=== PATIENT | female | born 1975 | race Caucasian/White ===

== ENCOUNTER 2024-12-16 09:01 | Outpatient (AMB) | payer OTHER, SELFPAY ==
--- NOTE | 2024-12-16 09:19 | MHC.OFFWIV ---
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 Patient Tobacco Use Status: Current everyday Tobacco user Allergies No Known Allergies Allergy (Verified 12/16/24 09:23) Do you need a note to return to daycare/school/sports/work: Yes HPI HPI Comments History of Present Illness Details 49 y/o Female patient who presents to the walk in clinic with c/o Cough chest congestion and headaches that has been present for about 2 weeks. Pt is a chronic cigarette smoker. Patient c/o Left ear blockage from cerumen. [facility], [facility] Medical History (Updated 12/16/24 @ 10:16 by Kelley Mcdonald NP) Cerumen impaction Cough Social History Patient Tobacco Use Status: Current everyday Tobacco user Review of Systems Const All systems reviewed & are unremarkable except as noted in HPI and below Physical Exam Vital Signs: Last Vital Signs Temp 98.1 F 12/16/24 09:24 Pulse 64 12/16/24 09:24 BP 114/70 12/16/24 09:24 Pulse Ox 96 12/16/24 09:24 Oxygen Delivery Method Room Air 12/16/24 09:24 Const General: no acute distress Nutritional Appearance: obese Orientation/consciousness: patient oriented x3 HEENT Head: Yes normocephalic Ears: external ears normal, TM normal on the right and TM abnormal obstructed by cerumen on the left Mouth: moist mucous membranes Resp Effort & Inspection: normal respiratory effort and able to speak in complete sentences Auscultation: no crackles, no rales, no rhonchi and wheezes scattered wheezes Cardio Rhythm: regular rhythm Heart sounds: S1 normal heart sound present and S2 normal heart sound present Neuro General: patient oriented x3 Office Procedures Cerumen Removal From which ear canal was the cerumen removed: left Removal: irrigation Notes: patient tolerated procedure well [id number] Irrigation/Lavage Assessment & Plan Assessment & Plan (1) Cough: Code(s): R05.9 - Cough, unspecified Qualifiers: Cough type: subacute Qualified Code(s): R05.2 - Subacute cough Plan: Ordered chest Xray Ordered Z-pack. (2) Cerumen impaction: Code(s): H61.20 - Impacted cerumen, unspecified ear Qualifiers: Laterality: left Qualified Code(s): H61.22 - Impacted cerumen, left ear Plan: Ordered Ear Lavage. TM clear and intact after Lavage. Orders: Orders XR chest 2V Today R05.2 - Subacute cough Medications: New azithromycin 500 mg PO DAILY 3 days 3 tabs 0RF R05.2 - Subacute cough azithromycin 500 mg PO DAILY 3 tabs 0RF 3 days R05.2 - Subacute cough Coding Level of Care Code New Pt Level 4 (28788) Diagnoses Subacute cough R05.2 Cough type: subacute Impacted cerumen of left ear H61.22 Laterality: left CPT Codes Office Procedure - CPT: 75832-[place] Irrigation/Lavage ([id number]) Time Spent (min) 20
[2024-12-16 09:24] VITALS: BP 114/70; PULSE 64; TEMP 36.7; O2SAT 96
== END 2024-12-16 10:36 | disposition home or self-care (01) ==
PROVIDERS: Visit Provider Nurse Practitioner Family
DX: R05.2 Subacute cough (principal); H61.22 Impacted cerumen, left ear

== ENCOUNTER 2024-12-16 09:01 | Outpatient (REF) | payer OTHER, SELFPAY ==
--- NOTE | ~2024-12-16 | XR_ITS ---
EXAMINATION: XR CHEST CLINICAL INFORMATION: R05.2 - Subacute cough COMPARISON: None available. TECHNIQUE: 2 views of the chest were obtained. FINDINGS: No consolidation, pleural effusion or pneumothorax. Cardiomediastinal silhouette size is normal. Multilevel marginal osteophyte formation and endplate sclerosis throughout the axial skeleton. Degenerative changes in the common clavicular joints, right greater than the left side. Patient's body habitus is large. XR/XR chest 2V IMPRESSION: No acute airspace disease. Multilevel spondylosis. Degenerative changes, acromioclavicular joints. Electronically signed by: Kenny Luke MD 12/16/2024 10:52 AM EDT
== END 2024-12-16 09:02 | disposition home or self-care (01) ==
LOC: HO.HMGCX 09:01
PROVIDERS: PCP Nurse Practitioner Family; Visit Provider Nurse Practitioner Family
DX: R05.2 Subacute cough (principal); H61.22 Impacted cerumen, left ear
CPT/HCPCS: 69209; 71046

== ENCOUNTER → 2024-12-16 10:32 | Outpatient (BNV) | payer OTHER, SELFPAY | PROVIDERS: PCP Nurse Practitioner Family; Visit Provider Radiology Diagnostic Radiology | DX: R05.9 Cough, unspecified (principal) | CPT/HCPCS: 71046 ==

== ENCOUNTER 2024-12-30 08:00 | Outpatient (REF) | payer OTHER, SELFPAY | END 2024-12-30 08:01 | disposition home or self-care (01) | LOC: HO.LAB 08:00 | DX: B37.0 Candidal stomatitis (principal); J02.9 Acute pharyngitis, unspecified | CPT/HCPCS: 87070; 87880 ==

== ENCOUNTER 2024-12-30 08:00 | Outpatient (AMB) | payer OTHER, SELFPAY ==
--- NOTE | 2024-12-30 08:03 | AM.OFFWIN_ITS ---
Intake Vital Signs 12/30/24 08:08 Weight 263 lb BP 114/78 Blood Pressure Location Lt brachial Position Sitting Pulse 68 Pulse Source Pulse Oximeter Temp 98.2 F Temp Source Oral Pulse Oximetry (%) 97 Oxygen Delivery Method Room Air Intake Visit Reasons: EP Sore throat Intake Note: Patient here for sore throat that has been present for a couple of days. Patient Tobacco Use Status: Current everyday Tobacco user Allergies No Known Allergies Allergy (Verified 12/30/24 08:13) Do you need a note to return to daycare/school/sports/work: Yes HPI HPI Comments History of Present Illness Details 49 y/o Female patient who presents to [facility] walk in clinic with c/o Sore- throat for ~ 1 week. Reports pain with Swallowing, loss taste and Tongue pain. She has noticed some redness and Bumps on her Tongue. She was recently treated with Z-pack due to URI symptoms. She is also a chronic everyday Smoker cigarettes and weed. Denies fevers, chills, nausea or vomiting. [facility] Medical History (Updated 12/30/24 @ 08:31 by Kelley Mcdonald NP) Pharyngitis Candidiasis of tongue Cerumen impaction Cough Social History Patient Tobacco Use Status: Current everyday Tobacco user Review of Systems Const All systems reviewed & are unremarkable except as noted in HPI and below Physical Exam Vital Signs: Last Vital Signs Temp 98.2 F 12/30/24 08:08 Pulse 68 12/30/24 08:08 BP 114/78 12/30/24 08:08 Pulse Ox 97 12/30/24 08:08 Oxygen Delivery Method Room Air 12/30/24 08:08 Const General: no acute distress Nutritional Appearance: obese morbidly obese Orientation/consciousness: patient oriented x3 HEENT Head: Yes normocephalic Ears: external ears normal and TM abnormal with fluid behind the TM bilateral Mouth: tongue abnormal fissured and with white coating Throat: Yes uvula midline Neuro General: patient oriented x3, gait normal and moves all extremities Psych Speech and movement: Normal speech and movement present Results AMB Rapid Strep AMB Rapid Strep Negative Last Edit by SHARATH Calero on 12/30/24 08:34 Results Reviewed Results Reviewed: Laboratory Last Values Strep Scn Rapid Clinic Negative 12/30/24 08:30 Assessment & Plan Assessment & Plan (1) Candidiasis of tongue: Code(s): B37.0 - Candidal stomatitis Plan: Ordered Fluconazole (2) Pharyngitis: Code(s): J02.9 - Acute pharyngitis, unspecified Qualifiers: Pharyngitis/tonsillitis etiology: unspecified etiology Qualified Code(s): J02.9 - Acute pharyngitis, unspecified Plan: Rapid Strep negative. Will send for Throat culture. Orders: Orders AMB Rapid Strep Screen Today Z13.9 - Encounter for screening, unspecified Throat Culture Today J02.9 - Acute pharyngitis, unspecified Medications: New fluconazole DO NOT TAKE FLUCONAZOLE TOGETHER QUETIAPINE. 150 mg PO DAILY 2 tabs 2RF B37.0 - Candidal stomatitis Coding Level of Care Code Est Pt Level 4 (46756) Diagnoses Candidiasis of tongue B37.0 Pharyngitis, unspecified etiology J02.9 Pharyngitis/tonsillitis etiology: unspecified etiology Time Spent (min) 20
[2024-12-30 08:08] VITALS: BP 114/78; PULSE 68; TEMP 36.8; O2SAT 97
== END 2024-12-30 08:47 | disposition home or self-care (01) ==
PROVIDERS: Visit Provider Nurse Practitioner Family
DX: B37.0 Candidal stomatitis (principal); J02.9 Acute pharyngitis, unspecified; Z13.9 Encounter for screening, unspecified